=== PATIENT | female | born 1980 | race Caucasian/White ===

== ENCOUNTER 2020-03-01 14:16 | Day surgery (SDC) | payer OTHER ==
--- NOTE | 2020-03-01 14:49 | PDOC.FPROB ---
FMR OB H&P: HPI - History of Present Illness Chief Complaint: sent by [facility] for BPP 01/16 Indentification: 39yo at 34.0w by 22.4w US History of Present Illness: at 34.0 wks, [place] 04/12/20. Pt presents to L&D after [facility] appt today were she had BPP 01/16, off for gross movement and flexion/extensions. MAL: 5.4. [facility] recommended she be seen at hospital for NST and if category 1 then follow up with repeat BPP. She reports good FM. Denies vaginal discharge, vaginal bleeding, scotoma, cramping/ctx, LOF, and MANCIA. Hx of elevated pressures at home and monitors pressures at home and wnl. She does not have a diagnosis of gHTN. Primary Care Physician: TAO Cary MD FMR OB H&P: Current - Care : 1 Para: 0 Gestational age: 34.0 Due date: 04/12/20 Dating Criteria: 22.4w US Course/Complications: AMA, Hx of elevated BP but no dx of gHTN or PreE, late to care/poor dating - OB Labs Blood type: A RH: positive HIV: negative RPR: negative HepBsAg: negative Rubella: immune Quad screen: negative H&H: 11.8/34.1 Platelets: 194 - Anatomy Survey Anatomy survey: Normal anatomic Survey. 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 - Surgical History Sx History: Knee surgery, wrist surgery - Social History Social History: Denies smoking, alcohol, drugs - Family History Family History: non-contributory FMR OB H&P: Medications - Current Home Medications: Medication Instructions Recorded Confirmed Type Duncan-3 Fatty Acids/Fish Oil 1 each PO DAILY 03/01/20 03/01/20 History [Duncan 3 1,000 mg Softgel] Vitamin 1 tablet PO DAILY 03/01/20 03/01/20 History Allergies/Adverse Reactions: Allergies Allergy/AdvReac Type Severity Reaction Status Date / Time No Known Allergies Allergy Unverified 03/01/20 15:06 FMR OB H&P: ROS - Review of Systems General: denies: fever/chills, weight/appetite/sleep changes ENT: denies: nasal congestion, rhinorrhea Cardiovascular: denies: chest pain, palpitation, edema Gastrointestinal: denies: abdominal pain, indigestion Genitourinary (Female): denies: incontinence, dysuria, hematuria Musculoskeletal: denies: pain, stiffness Neurologic: denies: numbness, syncope Integumentary: denies: itching, lesions Psychological: denies: depression, anxiety FMR OB H&P: Vital Signs - Maternal Vital signs: R-18, T98.6, BP- 134/78 - Heart Tones Baseline: 140 Variability: moderate Acceleration: absent Deceleration: absent FMR OB H&P: Physical Exam - Physical Exam General: NAD, awake, alert and oriented HEENT: PERRLA, EOMI Neck: FROM, no JVD Heart: RRR, normal S1/S2, no murmurs/rubs/gallops, no edema General: CTAB, no respiratory distress, good air movement, no wheezing Abdomen: soft, gravid, non-tender Musculoskeletal: pulses present, FROM in all four extremities Neurological: cranial nerves II through XII intact, sensation to pain,touch and proprioception grossly normal Skin: good tugor, capillary refill <2 seconds Lymphatic: no purpura, no petechia Psychiatric: intact recent and remote memory, good judgement and insight FMR OB H&P: A/P - Problem List (1) Primigravida in third trimester Current Visit: Yes Status: Acute Code(s): Z34.03 - ENCNTR FOR SUPRVSN OF NORMAL FIRST PREG, THIRD TRIMESTER (2) AMA (advanced maternal age) primigravida 35+ Current Visit: Yes Status: Acute Code(s): O09.519 - SUPERVISION OF ELDERLY PRIMIGRAVIDA, UNSPECIFIED TRIMESTER (3) Obesity Current Visit: Yes Status: Acute Code(s): E66.9 - OBESITY, UNSPECIFIED Disposition: Pt is a 39 yo at 34.0 wks, dated by a 22.4 wk sono, here secondary to a poor BPP done with MFM, 01/16. They recommended her to be seen at the hospital: # IUP # AMA # Late to care - pt seen by MFM today and noted a BPP, 01/16. Recommended her be seen at hospital for NST. If reactive then will need a BPP 4-6 hours after initial. Initial performed at 1200. If negative they recommend steroids and delivery. She is currently doing well without complications. She has history of elevated pressures but after extensive chart review by Dr. Pierre she does not have a diagnosis of gHTN. Her pre-e work up in the past is negative. PCP: Raeann HINTON Discussion: Date/Time: 03/01/20 1449 This H&P was discussed with [] and [] who agree with the above documentation and plan. Addendum - Attending - Attending Attestation Date/Time: 03/01/20 175 I personally evaluated the patient and discussed the management with Dr. Smith I agree with the History, Examination, Assessment and Plan documented above with any addition or exceptions noted below - 39 yo female @ 34 week sent by [facility] due to BPP 01/16. Was seeing MFM for AMA, obesity, and elevated BP at home but all pressures have been normal and growth ultrasound/BPP. Normal growth. Denies any ctx, LOF, VB (+)FM. FHTs- 140s/(+) accels/ no decels/ mod variability - Category 1; [place]- no ctx. A/P: 1) IUP @34 weeks- NST reassuring. Will repeat BPP in 4-6 hours from initial one. If improved will d/c home. If BPP 6/10 or less will give steroids and move towards delivery.
[2020-03-01 15:10] VITALS: BMI 36.9
[2020-03-01 15:11] VITALS: BP 134/81; TEMP 98.6
--- NOTE | 2020-03-01 18:11 | PDOC.LDPN ---
Labor & Delivery Progress Note - Subjective Subjective: comfortable - Objective Vital signs reviewed and normal: yes General: NAD, resting -: Pt is a 39 yo at 34.0 wks, dated by a 22.4 wk sono, here 2/2 BPP done with MFM, score of 4/8. They recommended her to be seen at the hospital: # IUP # AMA # Late to care -Pt seen by MFM today and noted a BPP, 01/16. Recommended her be seen at hospital for NST. -NST reactive -Repeat BPP 05/18, MAL ~7, DVT >2. Cephalic presentation. Discussed findings with patient. -BP has been controlled here without any pressures >140/90. Encouraged patient to continue monitoring her BP at home -Encouraged patient to f/u in clinic in 2 weeks for next appointment/GBS swab. Dispo: Due to reactive NST and BPP 05/18, patient will be discharged home. RTC precautions discussed. Patient agreeable with plan of care. PCP: Raeann HINTON
--- NOTE | 2020-03-01 19:33 | ULT ---
ULTRASOUND BIOPHYSICAL PROFILE: 03/01/20 HISTORY: 4-8 BPP earlier today, AMA. COMPARISON: None. FINDINGS: Real time ward scale, color and spectral analysis of the gravid uterus was performed for the evaluati on of biophysical profile. Amniotic fluid index measures 7 cm. The heart rate is 123 beats per minute with a single viable intra uterine . The position is vertex and the placenta is anterior. Biophysical profile sco re is 8/8. IMPRESSION: Biophysical profile score of 8/8. POS: HOME
== END 2020-03-01 18:14 | disposition home or self-care (01) ==
LOC: L&D/OP 14:16
PROVIDERS: ATTEND Family Medicine
DX: O99.89 Other specified diseases and conditions complicating pregnancy, childbirth and the puerperium (principal); R03.0 Elevated blood-pressure reading, without diagnosis of hypertension; O09.513 Supervision of elderly primigravida, third trimester; O99.213 Obesity complicating pregnancy, third trimester; E66.9 Obesity, unspecified; Z3A.34 34 weeks gestation of pregnancy
CPT/HCPCS: 76819

== ENCOUNTER 2020-04-04 09:45 | Outpatient (CLI) | payer OTHER ==
[2020-04-05 12:09] LABS: SARS-CoV-2 MS2 Positive; SARS-CoV-2 N Gene Negative; SARS-CoV-2 S Gene Negative; SARS-CoV-2 orf1ab Negative
== END 2020-04-04 09:46 | disposition home or self-care (01) ==
LOC: SCSLAB 09:45
PROVIDERS: ATTEND Family Medicine
DX: Z01.812 Encounter for preprocedural laboratory examination (principal); Z11.59 Encounter for screening for other viral diseases
CPT/HCPCS: 87635; U0003

== ENCOUNTER 2020-04-05 16:15 | Inpatient (IN) | payer OTHER ==
[2020-04-05 16:46] VITALS: BMI 38.5
--- NOTE | 2020-04-05 17:12 | PDOC.FPROB ---
FMR OB H&P: HPI - History of Present Illness Chief Complaint: Sent from clinic Indentification: 39 yo G1 History of Present Illness: Ms. Coleman is a 39yoF who presents to L&D for evaluation of low MAL. She was seen in clinic today for weekly testing and had 2 severe range pressures in clinic of systolic 171 and 160. Her US revealed an MAL of 2. She was sent over for evaluation. Primary Care Physician: JAMAAL Cary FMR OB H&P: Current - Care : 1 Para: 0 Gestational age: 38.5 by 22.4wk US Due date: 04/14/20 Course/Complications: Intermittently elevated BPs. - OB Labs Blood type: unknown RH: unknown Antibody Screen: unknown HIV: negative RPR: negative HepBsAg: unknown Quad screen: unknown Gonorrhea: unknown Chlamydia: unknown A1c: 4.8 GBS: negative Additional labs: varicella immune hep c neg FMR OB H&P: History - Past Medical History PMH: Denies - OB History OB History: G1 - MICRO COMPUTER SPECIALIST History MICRO COMPUTER SPECIALIST History: Denies - Surgical History Sx History: Knee surgeries, wrist surgery, lasix - Social History Social History: Alcohol use in 1T. Denies illicit drug use or tobacco use. - Family History Family History: father prostate cancer. FMR OB H&P: Medications - Current Home Medications: Medication Instructions Recorded Confirmed Type Warren-3 Fatty Acids/Fish Oil 1 each PO DAILY 03/01/20 03/01/20 History [Warren 3 1,000 mg Softgel] Vitamin 1 tablet PO DAILY 03/01/20 03/01/20 History Allergies/Adverse Reactions: Allergies Allergy/AdvReac Type Severity Reaction Status Date / Time No Known Allergies Allergy Verified 04/05/20 16:41 FMR OB H&P: ROS - Review of Systems General: denies: fever/chills, weight/appetite/sleep changes, night sweats Eyes: denies: eye pain, vision changes ENT: denies: nasal congestion, rhinorrhea, frequent nose bleed, sore throat Cardiovascular: denies: chest pain, palpitation, edema Respiratory: denies: cough, congestion Gastrointestinal: denies: abdominal pain, indigestion Genitourinary (Female): denies: incontinence, dysuria, hematuria Musculoskeletal: denies: pain, stiffness Neurologic: denies: numbness, syncope Integumentary: denies: itching, rash, lesions FMR OB H&P: Vital Signs - Maternal Vital signs: Vital Signs - First Documented Temp Pulse Resp BP Pulse Ox 98.6 F 87 18 140/89 98 04/05/20 16:36 04/05/20 16:36 04/05/20 16:36 04/05/20 16:36 04/05/20 16:36 - Heart Tones Baseline: 130 Variability: moderate Acceleration: present Deceleration: absent Category: category 1 FMR OB H&P: Physical Exam - Physical Exam General: NAD, awake, alert and oriented HEENT: normocephalic and atraumatic, PERRLA, EOMI, MMM Neck: supple, FROM Heart: RRR, normal S1/S2, no murmurs/rubs/gallops General: CTAB, no respiratory distress Abdomen: soft, gravid Musculoskeletal: normal gait and station, pulses present Neurological: cranial nerves II through XII intact Skin: no rash, good tugor Lymphatic: no unusual bruising or bleeding Psychiatric: intact recent and remote memory, good judgement and insight, normal mood and affect - Pelvic Exam SVE: 0/25/-3 @ 1730 Membranes: intact FMR OB H&P: A/P Disposition: Stable, admitting for induction of labor. Discussion: Date/Time: 04/05/20 1710 Term intrauterine Induction of labor for gHTN and oligohydramnios - 38.5wks EGA by 22.4 wk US - 2 severe range pressures today in clinic and MAL of 2. - SVE Closed, 25% and -3. - Will admit to L&D and begin induction of labor with cytotec. - Closely monitor BPs. - Urine protein, creatinine, CBC, CMP, and uric acid ordered. This H&P was discussed with Dr. Hawthorne & Dr. Bingham who agree with the above documentation and plan. Signature: Micheline JORDAN PGY1 Addendum - Attending - Attending Attestation Date/Time: 04/06/20 0817 I personally and discussed the management with Dr. Patel/John. Dr. Bingham saw the patient personally. I agree with the History, Examination, Assessment and Plan documented above with any addition or exceptions noted below. At admission Dr ramsey and I discussed whether to start Mag therapy. The two e ere range pressures were only 5 minutes apart at the clinic. Ms. Coleman was asymptomatic. We determined to initiate Mag therapy if she had another severe range pressure or developed symptoms.
[2020-04-05] MEDS ORDERED: Ondansetron PF 4 MG/2 ML Vial IVP PRN (17:45)
[2020-04-05] MEDS ORDERED: Carboprost 250 MCG/ML AMP IM PRN (17:45)
[2020-04-05] MEDS ORDERED: Butorphanol Tartrate 1 MG/ML VIAL SLOW IVP PRN (17:45)
[2020-04-05] MEDS ORDERED: Acetaminophen 500 MG TAB PO PRN (17:45)
[2020-04-05] MEDS ORDERED: NS w/ Oxytocin 10 units 500 ML IV SCH (17:45)
[2020-04-05] MEDS ORDERED: Lidocaine 1% (PF) 30 ML VIAL SC PRN (17:45)
[2020-04-05] MEDS ORDERED: Promethazine HCl 25 MG/ML VIAL IM PRN (17:45)
[2020-04-05] MEDS ORDERED: Misoprostol 200 MCG TAB PR PRN (17:45)
[2020-04-05] MEDS ORDERED: Ibuprofen 800 MG TAB PO PRN (17:45)
[2020-04-05] MEDS ORDERED: hydrALAZINE 20 MG/ML VIAL SLOW IVP PRN (17:45)
[2020-04-05] MEDS ORDERED: NS / Oxytocin 40 units/1000ml 1,000 ML IV PRN (17:45)
[2020-04-05] MEDS: Lactated Ringer's 1,000 ML IV SCH (18:40)
[2020-04-05 19:19] LABS: ALT (SGPT) 15 U/L (8-55); AST (SGOT) 18 U/L (5-34); Albumin 3.4 g/dL (3.5-5.0); Alkaline Phosphatase 152 U/L (40-110); Anion Gap 14 mmol/L (10-20); BUN (Urea Nitrogen) 10 mg/dL (7.0-18.7); Bilirubin, Total 0.3 mg/dL (0.2-1.2); Calc. Creatinine Clearance 177 mL/min (70-130); Calcium 9.1 mg/dL (7.8-10.44); Carbon Dioxide 19 mmol/L (22-29); Chloride 108 mmol/L (98-107); Estimated GFR-MDRD 89; Globulin 2.8 g/dL (2.4-3.5); Glucose 70 mg/dL (70-105); Potassium 4.4 mmol/L (3.5-5.1); Protein, Total 6.2 g/dL (6.0-8.3); Sodium 137 mmol/L (136-145); Uric Acid 5.1 mg/dL (2.6-6.0)
[2020-04-05 19:23] LABS: Creatinine, Urine Less than 20.00 mg/dL (47-110); Protein, Urine Random Quant Less than 10 mg/dL (1-14)
[2020-04-05] MEDS: Misoprostol 100 MCG TAB VAG SCH ×2 (19:25→23:53)
[2020-04-05 19:26] LABS: #Basophils 0.1 thou/uL (0.0-0.2); #Eosinphils 0.1 thou/uL (0.0-0.7); #Lymphocytes 2.3 thou/uL (1.20-3.40); #Monocytes 0.9 thou/uL (0.11-0.59); #Neutrophils 8.5 thou/uL (1.40-6.50); %Basophils 0.8 % (0.0-1.0); %Eosinophils 0.6 % (0.0-10.0); %Lymphocytes 19.4 % (21.0-51.0); %Monocytes 7.8 % (0.0-10.0); %Neutrophils 71.4 % (42.0-75.0); Hemoglobin 13.9 g/dL (12.0-16.0); Large Platelets SLIGHT; MDiff Complete? YES; Mean Corpuscular HGB CONC 34.2 g/dL (32.0-36.0); Mean Corpuscular Hemoglobin 32.1 pg (27.0-31.0); Mean Corpuscular Volume 93.7 fL (78.0-98.0); Platelet Count 149 thou/uL (130-400); Platelet Morphology Comment Appears Adequate; Polychromasia SLIGHT = 2-3 cells (100X) (0-2/hpf); RBC Distribution Width 12.4 % (11.5-14.5); Red Blood Cell (RBC) Count 4.34 mill/uL (4.20-5.40)
[2020-04-05 19:37] LABS: Syphilis Antibody Nonreactive (Nonreactive); Syphilis Antibody Index 0.03 S/CO (<1.00 Non-Reactive)
[2020-04-05 19:42] LABS: HBSAg Index 0.19 S/CO (0-0.99); Hep B Surf Ag Non-Reactive S/CO (NonReactive)
--- NOTE | 2020-04-05 22:24 | PDOC.LDPN ---
Labor & Delivery Progress Note - Subjective Subjective: comfortable - Objective Vital signs reviewed and normal: yes General: NAD, resting FHT: category 1 - Assessment (1) High risk in primigravida greater than 35 years of age, antepartum Code(s): O09.519 - SUPERVISION OF ELDERLY PRIMIGRAVIDA, UNSPECIFIED TRIMESTER Current Visit: Yes Status: Acute (2) AMA (advanced maternal age) primigravida 35+ Code(s): O09.519 - SUPERVISION OF ELDERLY PRIMIGRAVIDA, UNSPECIFIED TRIMESTER Current Visit: No Status: Acute Qualifiers: Trimester: third trimester Qualified Code(s): O09.513 - Supervision of elderly primigravida, third trimester (3) Gestational [-induced] hypertension without significant proteinuria , third trimester Code(s): O13.3 - GESTATIONAL HTN W/O SIGNIFICANT PROTEINURIA, THIRD TRIMESTER Current Visit: Yes Status: Acute (4) Oligohydramnios Code(s): O41.00X0 - OLIGOHYDRAMNIOS, UNSP TRIMESTER, NOT APPLICABLE OR UNSP Current Visit: Yes Status: Acute Qualifiers: Fetus number: single or unspecified fetus Trimester: third trimester Qualified Code(s): O41.03X0 - Oligohydramnios, third trimester, not applicable or unspecified Plan: continue plan of care -: Cat 1 strip at 2130. Cytotec placed at 1930. Will check patient again 2330. Pressure at 1730 WNL. Will re-check pressures. Addendum - Attending - Attending Attestation Date/Time: 04/05/20 2230 I personally evaluated the patient and discussed the management with Dr. Smith I agree with the History, Examination, Assessment and Plan documented above with any addition or exceptions noted below. 39 yo female at 38.5 wks by 22.4 wk sono with gHTN and oligo admitted for IOL Patient denies complaints. FHT cat 1. VS reviewed. Mild range BP to normotensive. Labs WNL with borderline PLT 149 and uric acid 5.1 - mIOL: Continue with miso. Options discussed. - sIUP: IOB labs reviewed. Apos. Anatomy reviewed. Level II sono. 2T/3T negative. GBS negative. s/p Tdap. - AMA - gHTN: Dx at 37 wks but patient declined delivery. Labs trended and remained WNL. Patient remains asymptomic. Elevated BP occasionally and has been mild range except severe range earlier today during testing. Repeat labs at time of admission remain reassuring. Continue to closely monitor. Start mag if severe pressures return. - oligo: Continue close monitoring of fetus. Currently cat 1 tracing. Discussed possible need for surgical delivery if infant not able to tolerate labor. Patient states understanding. - obesity ABrayMD
--- NOTE | 2020-04-06 00:05 | PDOC.LDPN ---
Labor & Delivery Progress Note - Subjective Subjective: comfortable - Objective General: NAD, resting Plan: continue plan of care -: Pt made little change to /2. Will continue with a second cytotec. Consider balloon on next check. Pre-E labs negative. Charles Smith DO Addendum - Attending - Attending Attestation Date/Time: 04/06/20 4522 I personally evaluated the patient and discussed the management with Dr. Smith I agree with the History, Examination, Assessment and Plan documented above with any addition or exceptions noted below. 39 yo female at 38.6 wks by 22.4 wk sono with gHTN and oligo Asymptomic. SVE 1 cm FHT cat 1 - Continue monitoring. - 2nd miso placed. - No s/sx of progression of gHTN to preE ABrayMD
[2020-04-06] MEDS ORDERED: Fentanyl 4 mcg/Bup 0.1% Cadd 100 ML ONE ×2 (03:17→10:02)
[2020-04-06] MEDS: Lactated Ringer's 1,000 ML IV SCH ×3 (03:41→09:21)
[2020-04-06] MEDS ORDERED: Acetaminophen 325 MG TAB PO PRN (03:50)
[2020-04-06] MEDS ORDERED: diphenhydrAMINE 50 MG/ML VIAL IVP PRN (03:50)
[2020-04-06] MEDS ORDERED: Ondansetron PF 4 MG/2 ML Vial IVP PRN (03:50)
[2020-04-06] MEDS ORDERED: Naloxone HCl 0.4 mg/ml Vial IVP PRN ×2 (03:50)
[2020-04-06] MEDS ORDERED: Promethazine HCl 25 MG/ML VIAL IM PRN (03:50)
[2020-04-06] MEDS ORDERED: Lactated Ringer's 500 ML IV PRN (03:50)
[2020-04-06] MEDS ORDERED: EPHEDRINE 25 MG/5 ML SYRINGE SLOW IVP PRN (03:50)
[2020-04-06] MEDS ORDERED: Communication Order-Pharmacy FS SCH (04:00)
[2020-04-06] MEDS ORDERED: Fentanyl 4 mcg/Bupivacaine 0.1% Cassette 100 ML EPIDURAL SCH (04:00)
--- NOTE | 2020-04-06 04:24 | PDOC.LDPN ---
Labor & Delivery Progress Note - Subjective Subjective: comfortable (Had just received epidural. Prior to, was having very painful CTX. Now resting, comfortable. Denies any new symptoms such as NV, chest pain, palpitations, abdominal pain, headache, or vision changes. Patient states she feels more numb on L but it is starting to even out.) - Objective Vital signs reviewed and normal: yes (2 elevated BPs within 10 min during CTX and epidural, no new symptoms) General: NAD, resting Uterine fundus: non tender Dilation: 4 Effacement: 100% Station: -1 FHT: category 1 [place] contractions every: 2-3min Resuscitative measures: maternal IV fluids - Assessment (1) Gestational [-induced] hypertension without significant proteinuria , third trimester Code(s): O13.3 - GESTATIONAL HTN W/O SIGNIFICANT PROTEINURIA, THIRD TRIMESTER Current Visit: Yes Status: Acute (2) High risk in primigravida greater than 35 years of age, antepartum Code(s): O09.519 - SUPERVISION OF ELDERLY PRIMIGRAVIDA, UNSPECIFIED TRIMESTER Current Visit: Yes Status: Acute (3) Oligohydramnios Code(s): O41.00X0 - OLIGOHYDRAMNIOS, UNSP TRIMESTER, NOT APPLICABLE OR UNSP Current Visit: Yes Status: Acute Qualifiers: Fetus number: single or unspecified fetus Trimester: third trimester Qualified Code(s): O41.03X0 - Oligohydramnios, third trimester, not applicable or unspecified (4) AMA (advanced maternal age) primigravida 35+ Code(s): O09.519 - SUPERVISION OF ELDERLY PRIMIGRAVIDA, UNSPECIFIED TRIMESTER Current Visit: No Status: Acute Qualifiers: Trimester: third trimester Qualified Code(s): O09.513 - Supervision of elderly primigravida, third trimester (5) Obesity Code(s): E66.9 - OBESITY, UNSPECIFIED Current Visit: No Status: Acute (6) Primigravida in third trimester Code(s): Z34.03 - ENCNTR FOR SUPRVSN OF NORMAL FIRST PREG, THIRD TRIMESTER Current Visit: No Status: Acute Plan: continue plan of care -: 39 yo female at 38.6 wks by 22.4 wk sono with gHTN and oligo. Term IUP SVE /-1, making change. CTX q2min. Cat 1 strip. Epidural placed at 0330. - Continue monitoring. - Has had cytotech x 2, progressing well - Continue expectant management - Two severe range pressures during CTX and epidural which resolved. Patient's BP has been consistently 130s/60s since epidural placed. No new symptoms such as headache, vision changes, NV, abd pain. Will continue to closely monitor BPs. Pre - E labs negative. - Next check @ [address] Pierre Addendum - Attending - Attending Attestation Date/Time: 04/06/20 0658 I personally evaluated the patient and discussed the management with Dr. Jason I agree with the History, Examination, Assessment and Plan documented above with any addition or exceptions noted below. Shortly after epidural placement, BP dropped. heart tones lost varibilty and for a short time decels present. IVF bolus now started along with maternal O2 and position changes. Cycle BP every 15 mins. Give adenergic due to sympathetic block from epidural as needed. Follow u closely. If not resolved, will need to call section for delivery. Apolonia
[2020-04-06] MEDS ORDERED: NS / Oxytocin 40 units/1000ml 1,000 ML ONE ×3 (07:53→13:32)
[2020-04-06] MEDS ORDERED: Lidocaine 1% (PF) 30 ML VIAL ONE (07:53)
--- NOTE | 2020-04-06 08:18 | PDOC.LDPN ---
Labor & Delivery Progress Note - Subjective Subjective: comfortable - Objective General: NAD Dilation: 10 Effacement: 100% Station: -1 [place] contractions every: 2-4 min IUPC placed: yes FSE placed: yes Plan: continue plan of care -: 39 yo female at 38.6 wks by 22.4 wk sono with gHTN and oligo. Term IUP CTX q2-4min. Epidural placed at 0330. - Continue monitoring. - s/p cytotech x 2, progressing well - Continue expectant management - Two severe range pressures during CTX and epidural which resolved. Patient's BP has been consistently 130s/60s since epidural placed. No new symptoms such as headache, vision changes, NV, abd pain. Will continue to closely monitor BPs. Pre - E labs negative. - tracing with intermittent minimal variability, few late decels seen. Seem to be correlated with lower maternal BP. Give 500ml bolus of D5LR and continue to monitor closely. - 10/-1, prepare for delivery Addendum - Attending - Attending Attestation Date/Time: 04/06/20 3591 I personally evaluated the patient and discussed the management with Dr. Patel. I agree with the History, Examination, Assessment and Plan documented above with any addition or exceptions noted below.
[2020-04-06] MEDS ORDERED: Misoprostol 200 MCG TAB ONE (12:35)
[2020-04-06] MEDS ORDERED: Carboprost 250 MCG/ML AMP ONE (12:37)
[2020-04-06] MEDS ORDERED: Methylergonovine 0.2 MG/ML VIAL ONE (12:37)
[2020-04-06 12:45] LABS: Actual Bicarbonate (HCO3a) 20.2 mEq/L (22-28); Actual Bicarbonate (HCO3v) 18 mEq/L (22-28); Base Excess -8.3 mEq/L (-2.0 to +3.0); Base Excess (BEa) -9.1 mEq/L (-2.0 to +3.0); pH (Cord, venous) 7.28 (7.32-7.43)
[2020-04-06] MEDS ORDERED: Bisacodyl 10 MG SUPP PR PRN (13:28)
[2020-04-06] MEDS ORDERED: hydrALAZINE 20 MG/ML VIAL SLOW IVP PRN (13:28)
[2020-04-06] MEDS ORDERED: Clindamycin (PEDI) 900 MG in Syringe 0 ML IVPB SCH (13:28)
[2020-04-06] MEDS ORDERED: NS / Oxytocin 40 units/1000ml 1,000 ML IV SCH (13:28)
[2020-04-06] MEDS ORDERED: Gentamicin 20 MG/2 ML PF (Neonates) IVPB SCH (13:28)
[2020-04-06] MEDS ORDERED: Lanolin Ointment 7 GM TUBE TOP PRN (13:28)
[2020-04-06] MEDS ORDERED: Misoprostol 200 MCG TAB VAG SCH (13:28)
[2020-04-06] MEDS ORDERED: Adacel (T-DAP) 0.5 ML SYRINGE IM ONE (13:28)
[2020-04-06] MEDS ORDERED: Preparation H Ointment 28 GM TUBE PR PRN (13:28)
[2020-04-06] MEDS ORDERED: Milk Of Magnesia 30 ML UDCUP PO PRN ×2 (13:28)
[2020-04-06] MEDS: Clindamycin/D5W 900 MG in Premix Bag 1 BAG IVPB SCH ×2 (14:56→22:13)
[2020-04-06] MEDS ORDERED: GENTAMICIN SULFATE IVPB SCH (15:00)
[2020-04-06] MEDS ORDERED: SODIUM CHLORIDE 0.9% IVPB SCH (15:00)
[2020-04-06] MEDS: Ibuprofen 800 MG TAB PO SCH ×2 (15:03→22:14)
[2020-04-06] MEDS: Ferrous Sulfate 325 MG TAB PO SCH (19:20)
[2020-04-06] MEDS: Docusate 100 MG CAP PO SCH (22:14)
[2020-04-06] MEDS: Docusate Calcium (SURFAK) 240 MG CAP PO SCH (22:15)
[2020-04-07] MEDS: Clindamycin/D5W 900 MG in Premix Bag 1 BAG IVPB SCH (06:13)
[2020-04-07] MEDS: Ibuprofen 800 MG TAB PO SCH ×3 (06:13→21:53)
--- NOTE | 2020-04-07 06:43 | PDOC.PP ---
Post Progress Note Post Day #: 1 Subjective: Pain well controlled. Ambulating. Tolerating PO. going well but would like to meet with . No fever since delivery. PO intake tolerated: yes Flatus: yes Ambulation: yes Vital Signs (12 hours) Temp Pulse Resp BP Pulse Ox 04/06/20 23:57 98.2 F 92 16 104/55 L 95 04/06/20 19:55 98.4 F 87 16 139/64 96 Weight Weight 108.409 kg - Physical Examination General: NAD Cardiovascular: no m/r/g, RRR Respiratory: clear to auscultation bilaterally, non-labored breathing Abdominal: + bowel sounds, appropriately TTP Fundus firm & at: umbilicus Skin: no rash Neurological: no gross focal deficits Psychiatric: A&Ox3, normal affect Result Diagrams: 04/05/20 18:52 04/05/20 18:52 Additional Labs: Post Labs Blood Type A POSITIVE 04/05/20 20:12 Hep Bs Antigen Non-Reactive S/CO (NonReactive) 04/05/20 18:52 - Assessment/Plan 39yo delivered TAGA female on 04/06 sIUP, delivered - PPD #1 - Continue routine PP care - Received cytotec after delivery, QBL 150ml. - Plans to breastfeed - Will refer for tubal at PP visit gHTN - BPs <140/90 - Continue to monitor Addendum - Attending - Attending Attestation Date/Time: 04/07/20 1140 I personally evaluated the patient and discussed the management with Dr. Barrera. I agree with the History, Examination, Assessment and Plan documented above with any addition or exceptions noted below.
[2020-04-07] MEDS: Prenatal Vitamin 1 TAB PO SCH (08:16)
[2020-04-07] MEDS: Docusate 100 MG CAP PO SCH ×2 (08:16→19:10)
[2020-04-07] MEDS: Docusate Calcium (SURFAK) 240 MG CAP PO SCH ×2 (08:17→21:55)
[2020-04-07] MEDS: Ferrous Sulfate 325 MG TAB PO SCH ×2 (08:18→17:29)
[2020-04-07] MEDS: Polyethylene Glycol 3350 17 GM Packet PO SCH (08:18)
--- NOTE | 2020-04-07 08:18 | DN ---
DATE OF PROCEDURE: 04/06/2020 DELIVERING PHYSICIAN: Fay Barrera, PGY-2 ATTENDING PHYSICIAN: Hubert Hawthorne MD PROCEDURE PERFORMED: Spontaneous vaginal delivery. ANESTHESIA: Epidural. QUANTITATIVE BLOOD LOSS: 150 mL. PREOPERATIVE DIAGNOSES: 1. Term intrauterine . 2. Oligohydramnios. 3. Elevated blood pressures in . 4. Obesity. 5. Advanced maternal age. POSTOPERATIVE DIAGNOSES: 1. Term intrauterine , delivered. 2. Oligohydramnios. 3. Elevated blood pressures in . 4. Obesity. 5. Advanced maternal age. INDICATIONS: A 39-year-old, G1, P0, who presented for induction of labor after she was found to have oligohydramnios and elevated blood pressures in the 170s systolic in clinic. DELIVERY NOTE: This is a 39-year-old female, G1, P0, at 38 and 6 weeks, who delivered a viable female at 12:30. Following an uneventful antepartum course, a vigorous female was delivered over the peritoneum after midline episiotomy was per performed due to soft tissue dystocia in occiput anterior position. Anterior shoulder and then remainder of the body delivered. Tight nuchal cord x1. The head was held down, and mouth and nares were bulb suctioned. Cord clamped and cut, and cord blood and cord gas collected. Placenta delivered intact in the Simental position with a three-vessel cord noted. Fundal massage was performed, and the fundus was initially noted to have atony. Therefore, 800 mcg of Cytotec was placed. She became firm with uterine massage and Cytotec. The cervix and vagina were inspected and only found to have second-degree perineal laceration secondary to episiotomy. This did not extend any. This was repaired with 3-0 chromic in the usual fashion with good approximation. went to the nursery in good condition for routine care. Apgars were 8 and 9 at 1 and 5 minutes respectively. The patient tolerated delivery well and went to after routine recovery. Job ID: [id number] [facility]
[2020-04-07] MEDS ORDERED: Benzocaine-Menthol 82.5 ML CAN TOP PRN (08:41)
--- NOTE | 2020-04-08 06:04 | PDOC.PP ---
Post Progress Note Post Day #: 2 Subjective: Feeling well this morning. and pumping. Ambulating. Tolerating PO. Minimal lochia. PO intake tolerated: yes Flatus: yes Ambulation: yes Vital Signs (12 hours) Temp Pulse Resp BP Pulse Ox 04/07/20 20:27 98.4 F 80 18 139/75 99 Weight Weight 108.409 kg - Physical Examination General: NAD Cardiovascular: no m/r/g, RRR Respiratory: clear to auscultation bilaterally, non-labored breathing Abdominal: + bowel sounds, lochia Fundus firm & at: below umbilicus Skin: no rash Neurological: no gross focal deficits Psychiatric: A&Ox3, normal affect Result Diagrams: 04/05/20 18:52 04/05/20 18:52 Additional Labs: Post Labs Blood Type A POSITIVE 04/05/20 20:12 Hep Bs Antigen Non-Reactive S/CO (NonReactive) 04/05/20 18:52 - Assessment/Plan 39yo delivered TAGA female on 04/06 sIUP, delivered - PPD #2 - Continue routine PP care - Received cytotec after delivery, QBL 150ml. - - Will refer for tubal at PP visit gHTN - BPs <140/90 - Continue to monitor - Follow up in clinic in 1 wk Addendum - Attending - Attending Attestation Date/Time: 04/08/20 1206 I personally evaluated the patient and discussed the management with the team. I agree with the History, Examination, Assessment and Plan documented above with any addition or exceptions noted below.
[2020-04-08] MEDS: Ibuprofen 800 MG TAB PO SCH ×2 (06:10→14:36)
[2020-04-08] MEDS: Misoprostol 100 MCG TAB VAG SCH ×2 (07:03→07:04)
[2020-04-08] MEDS: Ferrous Sulfate 325 MG TAB PO SCH (07:05)
[2020-04-08 08:18] VITALS: BP 129/59; TEMP 97.8
[2020-04-08] MEDS: Docusate 100 MG CAP PO SCH (08:21)
[2020-04-08] MEDS: Prenatal Vitamin 1 TAB PO SCH (08:21)
[2020-04-08] MEDS: Polyethylene Glycol 3350 17 GM Packet PO SCH (08:21)
[2020-04-08] MEDS: Docusate Calcium (SURFAK) 240 MG CAP PO SCH (08:21)
== END 2020-04-08 15:16 | disposition home or self-care (01) | DRG 806 ==
LOC: L&D/OP 16:15 → L&D 19:51 → 3SW 04-06 15:58
PROVIDERS: ADMIT Family Medicine; ATTEND Family Medicine
PROC: 10E0XZZ Delivery of Products of Conception, External Approach (ICD-10-PCS; principal; 2020-04-06)
PROC: 0KQM0ZZ Repair Perineum Muscle, Open Approach (ICD-10-PCS; 2020-04-06)
PROC: 0W8NXZZ Division of Female Perineum, External Approach (ICD-10-PCS; 2020-04-06)
DX: O13.4 Gestational [pregnancy-induced] hypertension without significant proteinuria, complicating childbirth (principal); O41.03X0 Oligohydramnios, third trimester, not applicable or unspecified; Z37.0 Single live birth; Z3A.38 38 weeks gestation of pregnancy; O99.214 Obesity complicating childbirth; E66.9 Obesity, unspecified; O69.81X0 Labor and delivery complicated by cord around neck, without compression, not applicable or unspecified; O66.0 Obstructed labor due to shoulder dystocia; O70.1 Second degree perineal laceration during delivery
CPT/HCPCS: 36415; 51702; 80053; 82570; 82805; 84156; 84550; 85025; 86780; 86850; 86900; 86901; 87340; 87635; 88307; J1580; J2001; J2210; J3490; U0003

== ENCOUNTER 2021-01-10 09:14 | Outpatient (CLI) | payer OTHER ==
[2021-01-10 11:02] LABS: Mean Corpuscular HGB CONC 33.8 g/dL (32.0-36.0); Mean Corpuscular Hemoglobin 30.6 pg (27.0-33.0); Mean Corpuscular Volume 90.4 fl (81.6-98.3); Mean Platelet Volume 12.5 fl (7.4-10.4); Platelet Count 246 10x3/uL (150-450); RBC Distribution Width 12.4 % (11.5-14.5); Red Blood Cell (RBC) Count 4.58 10x6/uL (3.90-5.03); White Blood Cell (WBC) Count 5.4 10x3/uL (3.5-10.5)
[2021-01-10 11:14] LABS: Anion Gap 13 mmol/L (10-20); BUN (Urea Nitrogen) 13 mg/dL (7.0-18.7); Calc. Creatinine Clearance 0 mL/min (70-130); Calcium 9.1 mg/dL (7.8-10.44); Carbon Dioxide 24 mmol/L (22-29); Chloride 106 mmol/L (98-107); Glucose 87 mg/dL (70-105); Potassium 4.4 mmol/L (3.5-5.1); Sodium 139 mmol/L (136-145)
[2021-01-10 11:23] LABS: INR-International Normal Ratio 0.9; PTT 26.3 sec (22.0-33.0); Prothrombin Time 10.4 sec (9.5-12.1)
[2021-01-11 01:24] LABS: SARS-CoV-2 PCR by NAA Not Detected (NotDetected)
== END 2021-01-10 09:15 | disposition home or self-care (01) ==
LOC: LABBT 09:14
PROVIDERS: ATTEND Urology
DX: Z01.818 Encounter for other preprocedural examination (principal); N20.1 Calculus of ureter; R35.0 Frequency of micturition; Z20.822 Contact with and (suspected) exposure to COVID-19
CPT/HCPCS: 80048; 85027; 85610; 85730; 87635; 93005; 93010; U0003; U0005